=== PATIENT | female | born 1940 | race Hispanic/Latino ===

== ENCOUNTER 2016-04-20 19:40 | Emergency (ER) | payer MEDICARE ==
[2016-04-20 20:47] LABS: ALT (SGPT) 9 U/L (0-55); AST (SGOT) 22 U/L (5-34); Alkaline Phosphatase 39 U/L (40-150); Anion Gap 14 mmol/L (10-20); BUN (Urea Nitrogen) 29 mg/dL (9.8-20.1); Bilirubin, Total 0.4 mg/dL (0.2-1.2); Calc. Creatinine Clearance 0 mL/min (70-130); Calcium 11.7 mg/dL (7.8-10.44); Carbon Dioxide 21 mmol/L (23-31); Chloride 108 mmol/L (98-107); Estimated GFR-MDRD 20; Globulin 6.3 g/dL (2.4-3.5); Protein, Total 8.9 g/dL (5.8-8.1)
[2016-04-20 20:48] LABS: Troponin I 0.025 ng/mL (< 0.028)
[2016-04-20 20:53] LABS: #Lymphocytes 1.3 thou/uL (1.20-3.40); #Monocytes 0.5 thou/uL (0.11-0.59); #Neutrophils 4.9 thou/uL (1.40-6.50); %Basophils 0.4 % (0.0-1.0); %Eosinophils 0.6 % (0.0-10.0); %Lymphocytes 19.3 % (21.0-51.0); %Monocytes 7.3 % (0.0-10.0); Hematocrit 19.1 % (36.0-47.0); Mean Platelet Volume 6.6 fL (7.4-10.4); Red Blood Cell (RBC) Count 1.86 mill/uL (4.20-5.40); White Blood Cell (WBC) Count 6.7 thou/uL (4.8-10.8)
[2016-04-20] MEDS ORDERED: Dextrose 5 %-0.45 % NaCl 1,000 ML ONE (20:53)
[2016-04-20 20:54] LABS: Hypochromia SLIGHT = 6-15 cells (100X) (0-5/hpf); Macrocytosis SLIGHT = 6-15 cells (100X) (0-5/hpf); Ovalocytes SLIGHT = 2-5 cells (100X) (0-1/hpf)
[2016-04-20] MEDS ORDERED: Sodium Chloride 0.9% 250 ML 250 ML ONE (21:21)
[2016-04-20] MEDS ORDERED: cefTRIAXone\\ROCEPHIN 2 GM VIAL ONE (21:21)
[2016-04-20] MEDS ORDERED: Azithromycin 500 MG VIAL ONE (21:21)
[2016-04-20] MEDS ORDERED: Sodium Chloride 0.9% 100 ML ONE (21:21)
--- NOTE | 2016-04-20 22:19 | ERRECORD ---
[facility] EMERGENCY RECORD HPI DIABETES (20:50 BPIC) CHIEF COMPLAINT: Patient presents for evaluation of hypoglycemia. HISTORIAN: History provided by patient, Additional history obtained from EMS, pt found unresponsive at home and 911 was called. ems found that the patient's blood glucose was 16. EMS gave 1/2 amp pt D50 and she became more responsive. pt does not recall what happened, but states that she has only eaten one taco this morning. she also has chronic renal disease and takes glipizide for her diabetes. ROS (20:55 BPIC) CONSTITUTIONAL: Negative constitutional review of systems, Historian denies chills, Historian denies fever. states she feels much better now. EYES: Negative eye review of systems. ENT: Negative ears, nose, throat review of systems. CARDIOVASCULAR: Negative cardiovascular review of systems, Historian denies chest pain, denies palpitations. RESPIRATORY: Negative respiratory review of systems, Historian denies cough, denies shortness of breath. GI: Negative gastrointestinal review of systems, Historian denies abdominal pain, denies constipation, denies diarrhea. MUSCULOSKELETAL: Historian reports back pain. SKIN: Negative skin review of systems. NEUROLOGIC: Negative neurologic review of systems. ENDOCRINE: Negative endocrine review of systems. HEMO/LYMPHATIC: Normal hematologic/lymphatic system review. PSYCHIATRIC: Negative psychiatric review of systems. NOTES: All other ROS is negative except as listed in HPI. 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 (19:50 KASA) FEMALE SURGICAL HISTORY: Surgical history of hysterectomy. (19:50 KASA) PSYCHIATRIC HISTORY: no history of suicidal ideations, No history of suicide attempts, No history of hallucinations, No history of homicidal ideations. (19:50 KASA) SOCIAL HISTORY: Lives at home, with family, Patient denies alcohol use, Patient denies drug use, Patient has no smoking history. (19:50 KASA) NOTES: I have reviewed and agree with the PMH/PSxH/FamHx/SocHx obtained by the nurse. (20:55 BPIC) KNOWN ALLERGIES No Known Allergies &a-1R&a+25V*p+0X*[id number]*c202B*c15G*c2P*p-0X&a-25V&a+1R Name: Kylie Aguero : 1940 F76 MedRec: [id number] AcctNum: [id number] Prepared: Jennifer Apr 21, 2016 00:18 by Interface Page 1 of 4 pMD [facility] EMERGENCY RECORD CURRENT MEDICATIONS glipiZIDE: TABLET : Strength - 5 mg : ORAL Patient Dose: 1 tab(s) Oral 2 times a day (with meals). (19:51 KASA) meTOPROLOL succinate: TABLET, EXTENDED RELEASE 24 HR : Strength - 25 mg : ORAL Patient Dose: 1 tab(s) Oral once a day. (19:52 KASA) sodium bicarbonate: TABLET : Strength - 650 mg : ORAL Patient Dose: 1 tab(s) Oral 3 times a day. (19:56 KASA) oxyCODONE: CAPSULE : Strength - 5 mg : ORAL Patient Dose: 1 tab(s) Oral As Needed. (19:57 KASA) VITAL SIGNS VITAL SIGNS: Pulse: 60, Resp: 20, Pain: 0, O2 sat: 100 on Room Air, Time: 04/20/2016 19:45. (19:45 KASA) BP: 200/79, Pulse: 60, Resp: 18, Temp: 96.4 (Tympanic), Pain: 0, O2 sat: 100, Time: 04/20/2016 19:48. (19:48 KASA) BP: 195/57, Pulse: 63, Resp: 20, Temp: 97.5 (Temporal), Pain: 0, O2 sat: 100 on Room Air, Time: 04/20/2016 22:15. (22:15 EPIE) BP: 165/65, Pulse: 56, Resp: 20 (Non-Labored), O2 sat: 99 on Room Air, Time: 04/20/2016 23:00. (23:00 EPIE) BP: 138/63, Pulse: 54, Resp: 18 (Non-Labored), Pain: 0, O2 sat: 100 on Room Air, Time: 04/20/2016 23:30. (23:30 EPIE) BP: 168/60, Pulse: 61, Resp: 20, Temp: 98.0, Pain: 0, O2 sat: 97 on RA, Time: 04/21/2016 00:02. (MonApr 21, 2016 00:02 KASA) PHYSICAL EXAM (20:55 BPIC) CONSTITUTIONAL: Vital signs reviewed, Patient appears non toxic, Patient alert and oriented to person, place and time, Pt is in no apparent distress. HEAD: Head exam included findings of head atraumatic, normocephalic. EYES: Eye exam included findings of eyelids normal to inspection, Pupils equally round and reactive to light, Extraocular muscles intact. ENT: ENT exam normal, Nose exam normal, no nasal deformity, no bleeding from nares, Pharynx exam normal, Mouth exam normal, mucous membranes moist. NECK: Neck exam included findings of normal range of motion, Trachea midline. RESPIRATORY CHEST: Rales present, to bilateral lower lobes. CARDIOVASCULAR: Heart sounds with, systolic murmur present, grade 3/6, Cardiovascular assessment normal, Cardiovascular exam included findings of heart rate regular rate and rhythm,. &a-1R&a+25V*p+0X*y9228K*c202B*c15G*c2P*p-0X&a-25V&a+1R Name: Kylie Aguero : 1940 F76 MedRec: [id number] AcctNum: [id number] Prepared: MonApr 21, 2016 00:18 by Interface Page 2 of 4 pMD [facility] EMERGENCY RECORD ABDOMEN FEMALE: Abdominal exam included findings of abdomen nontender, Bowel sounds normal, no mass, no pulsatile masses, no peritoneal signs. BACK: Back exam included findings of normal inspection, range of motion normal, no costovertebral angle tenderness. UPPER EXTREMITY: Upper extremity exam included findings of inspection normal, Range of motion normal. LOWER EXTREMITY: Lower extremity exam included findings of inspection normal, Range of motion normal, Edema present, to bilateral lower extremities, pitting, +1. NEURO: Neuro exam findings include patient oriented to person, place and time, Speech normal, no focal motor deficits, no focal sensory deficits. SKIN: Skin exam included findings of skin warm, dry, and normal in color. LYMPHATIC: Lymphatic exam normal. PSYCHIATRIC: Psychiatric exam included findings of patient oriented to person place and time, Normal affect. EKG INTERPRETATION (20:46 BPIC) 12 LEAD EKG INTERPRETATION: 12 lead EKG interpreted by Emergency Department Physician at time of study, 12 lead EKG shows, sinus bradycardia, Rate (beats per minute): 56, with no ectopics, Conduction normal, ST segments normal, T waves normal, Clinical impression:, non-specific EKG. RADIOLOGYINTERPRETATION (20:46 BPIC) CHEST: Films of the chest show, to the left lower. MEDICATION ADMINISTRATION SUMMARY Drug Name: *Imodium, Dose Ordered: 2 mg, Route: Oral, Status: Given, Time: 23:53 04/20/2016, Drug Name: azithromycin intravenous, Dose Ordered: 500 mg, Route: IV Piggy Back, Status: Given, Time: 22:04 04/20/2016, Drug Name: cefTRIAXone injection, Dose Ordered: 2 g, Route: IV Piggy Back, Status: Given, Time: 21:29 04/20/2016, Drug Name: *D5 %-0.45 % sodium chloride, Dose Ordered: 1 L, Route: IV Fluid Infusion, Status: Given, Time: 21:19 04/20/2016, Drug Name: aspirin oral, Dose Ordered: 324 mg, Route: Oral, Status: Given, Time: 20:14 04/20/2016, *Additional information available in notes, Detailed record available in Medication Service section. DOCTOR NOTES RE-EVALUATION: While in the ED and eating food, the patient's blood glucose has dropped back to 46. asymptomatic currently. D5 drip and eating encouraged. (21:50 BPIC) CRITICAL CARE: Time spent providing critical care to patient was 30-74 minutes, 35 minutes, pt with recurrent hypoglycemia &a-1R&a+25V*p+0X*u9566T*c202B*c15G*c2P*p-0X&a-25V&a+1R Name: Kylie Aguero : 1940 F76 MedRec: [id number] AcctNum: [id number] Prepared: MonApr 21, 2016 00:18 by Interface Page 3 of 4 pMD [facility] EMERGENCY RECORD needing iv drip of D5. dw family and with transfer facility for acceptance. pt also may have pneumonia and has multiple chronic lab abnormalities. (22:09 BPIC) D/W: Discussed this case with HOLLY Hay communication skills instructor at [facility] accepting for transfer. (22:08 BPIC) PROBLEM LIST No recorded problems DIAGNOSIS (22:07 BPIC) FINAL: PRIMARY: hypoglycemia, ADDITIONAL: chronic anemia, chronic kidney disease, possible pneumonia. PRESCRIPTION No recorded prescriptions DISPOSITION PATIENT: Disposition Type: Transfer, Disposition: Transfer to [facility], Condition: Guarded. (22:07 BPIC) Patient left the department. (MonApr 21, 2016 00:15 JALIL) Renteria: VENKAT=MD Samantha, Parveen TOPETE=MARCIAL Owens, Lora JIMENES=MARCIAL Weller, Vania &a-1R&a+25V*p+0X*m2921K*c202B*c15G*c2P*p-0X&a-25V&a+1R Name: Kylie Aguero : 1940 F76 MedRec: [id number] AcctNum: [id number] Prepared: MonApr 21, 2016 00:18 by Interface Page 4 of 4 pMD MTDD
--- NOTE | 2016-04-20 22:25 | PICIS ---
[facility] EMERGENCY RECORD TRIAGE (MonApr 20, 2016 19:47 KASA) TRIAGE NOTES: Hypoglycemic with a glucose of 16 by EMS. Up to 90 after .5 of D50. 73 at 1947. (MonApr 20, 2016 19:47 KASA) PATIENT: NAME: Kylie Aguero, AGE: 76, GENDER: female, : Mon1940, TIME OF GREET: MonApr 20, 2016 19:41, PREFERRED LANGUAGE: Cook Islander, ETHNICITY: or , ECODE BILLING MAP: [facility] ER, SSN: [id number], Zip Code: [address], KG WEIGHT: 69.85, PHONE: , , , PERSON ID: [id number], PCP: MD Childress Frederick. (MonApr 20, 2016 19:47 KASA) COMPLAINT: ROOM 4. (MonApr 20, 2016 19:47 KASA) ADMISSION: URGENCY: 3 Urgent, ADMISSION SOURCE: Home, AMBULANCE: [facility], TRANSPORT: AMBULANCE - [facility], BED: ER -04. (MonApr 20, 2016 19:47 KASA) SIRS SCORING: Heart Rate 55-109 (0), Temp range 93.1-96.7 (1), respiratory rate 12-24 (0), Latest WBC 3-14.9 (0), Mental Status altered: no (0), Total SIRS Score 1. (19:50 KASA) TRIAGE SCREENING: Patient denies suicidal ideation, Patient denies presence of domestic violence. (19:50 KASA) PROVIDERS: TRIAGE NURSE: Vania Weller RN. (MonApr 20, 2016 19:47 KASA) VITAL SIGNS: Pulse 60, Resp 20, Pain 0, O2 Sat 100, on Room Air, Time 04/20/2016 19:45. (19:45 KASA) BP 200/79, Pulse 60, Resp 18, Temp 96.4, (Tympanic), Pain 0, O2 Sat 100, Time 04/20/2016 19:48. (19:48 KASA) KNOWN ALLERGIES No Known Allergies CURRENT MEDICATIONS glipiZIDE: TABLET : Strength - 5 mg : ORAL Patient Dose: 1 tab(s) Oral 2 times a day (with meals). (19:51 KASA) meTOPROLOL succinate: TABLET, EXTENDED RELEASE 24 HR : Strength - 25 mg : ORAL Patient Dose: 1 tab(s) Oral once a day. (19:52 KASA) sodium bicarbonate: TABLET : Strength - 650 mg : ORAL Patient Dose: 1 tab(s) Oral 3 times a day. (19:56 KASA) oxyCODONE: CAPSULE : Strength - 5 mg : ORAL Patient Dose: 1 tab(s) Oral As Needed. (19:57 KASA) VITAL SIGNS VITAL SIGNS: Pulse: 60, Resp: 20, Pain: 0, O2 sat: 100 on Room Air, Time: 04/20/2016 19:45. (19:45 KASA) BP: 200/79, Pulse: 60, Resp: 18, Temp: 96.4 (Tympanic), Pain: 0, O2 sat: 100, Time: 04/20/2016 19:48. (19:48 KASA) BP: 195/57, Pulse: 63, Resp: 20, Temp: 97.5 (Temporal), Pain: 0, O2 sat: &a-1R&a+25V*p+0X*r5457D*c202B*c15G*c2P*p-0X&a-25V&a+1R Name: Kylie Aguero : 1940 F76 MedRec: [id number] AcctNum: [id number] Prepared: [facility] Apr 21, 2016 00:24 by Interface Page 1 of 13 pMD [facility] EMERGENCY RECORD 100 on Room Air, Time: 04/20/2016 22:15. (22:15 EPIE) BP: 165/65, Pulse: 56, Resp: 20 (Non-Labored), O2 sat: 99 on Room Air, Time: 04/20/2016 23:00. (23:00 EPIE) BP: 138/63, Pulse: 54, Resp: 18 (Non-Labored), Pain: 0, O2 sat: 100 on Room Air, Time: 04/20/2016 23:30. (23:30 EPIE) BP: 168/60, Pulse: 61, Resp: 20, Temp: 98.0, Pain: 0, O2 sat: 97 on RA, Time: 04/21/2016 00:02. (Jennifer Apr 21, 2016 00:02 KASA) NURSING ASSESSMENT: ELDERLY WITH PROCEDURES (20:00 KASA) CONSTITUTIONAL: Patient complains of Hypoglycemia, hypertensive. RESPIRATORY: Respiratory assessment findings include respiratory effort easy, Respirations regular, Conversing normally, Neck and chest exam findings include trachea midline, Chest expansion equal, Chest movement symmetrical, no signs of distress, no associated cough noted, no associated fever. ABDOMEN: Abdomen assessment findings include abdomen symmetrical, Abdomen soft, non-tender, Bowel sound normal, no associated nausea, no associated vomiting, no associated diarrhea, no associated constipation, Associated with appetite change, decrease, Notes: EMS states family reported decreased appetite over the past 3 weeks. FALL RISK: Fall risk assessment findings include: no history of falls (0), Use of level of consciousness altering agents with mentation or cognitive changes (3), Change in blood pressure (1), Impaired mobility (3), Elimination problems (3), Total score 10, Fall risk. TRISTAN SCALE: (3) Sensory perception slightly limited, (3) Skin is occasionally moist, (3) Patient walks occasionally, (3) Slightly limited mobility, (2) Nutrition is probably inadequate, (2) Patient has potential problem moving, Tristan Risk Total: 16. SAFETY: Side rails up, Cart/Stretcher in lowest position, Family at bedside, Call light within reach, Hospital ID band on. NURSING ASSESSMENT: FALL RISK (22:55 KASA) FALL RISK: Use of level of consciousness altering agents with mentation or cognitive changes (3), Change in blood pressure (1), Impaired mobility (3), Elimination problems (3), Total score 10, Fall risk. NURSING ASSESSMENT: SKIN (21:58 KASA) SKIN: Skin assessment findings include skin warm, Skin dry, Skin normal in color, Inspection findings include: No pressure ulcer to the shoulder, Inspection findings include no pressure ulcer to the elbow, Inspection findings include no pressure ulcers to the hip, Inspection findings include no pressure ulcer to the sacrum, Inspection findings include no pressure ulcer to the heel, Inspection findings include no pressure ulcer, Inspection findings include no pressure ulcer. SAFETY: Side rails up, Cart/Stretcher in lowest position, Family &a-1R&a+25V*p+0X*w3682Y*c202B*c15G*c2P*p-0X&a-25V&a+1R Name: Kylie Aguero : 1940 F76 MedRec: [id number] AcctNum: [id number] Prepared: Jennifer Apr 21, 2016 00:24 by Interface Page 2 of 13 pMD [facility] EMERGENCY RECORD at bedside, Call light within reach, Hospital ID band on. NURSING PROCEDURE: BEDSIDE RADIOLOGY PATIENT IDENTIFIER: Patient actively involved in identification process, Patient's identity verified by patient stating name, Patient's identity verified by patient stating date. (20:24 KASA) Patient actively involved in identification process, Patient's identity verified by patient stating name, Patient's identity verified by patient stating date. (20:24 SBRA) BEDSIDE RADIOLOGY: Bedside radiology performed by Marti, Portable chest x-ray performed. (20:24 KASA) Bedside radiology performed by JAXON, Portable chest x-ray performed. (20:24 SBRA) SAFETY: Side rails up, Cart/Stretcher in lowest position, Family at bedside, Call light within reach, Hospital ID band on. (20:24 KASA) NURSING PROCEDURE: BEDSIDE TESTING PATIENT IDENTIFIER: Patient actively involved in identification process, Patient's identity verified by patient stating name, Patient's identity verified by patient stating date. (19:47 KASA) Patient actively involved in identification process, Patient's identity verified by patient stating name, Patient's identity verified by patient stating date. (23:50 KASA) GLUCOSE: Glucose testing indicated for diabetic patient, Glucose testing indicated for hypoglycemia, Capillary blood sample, Result (mg/dl) 73. (19:47 KASA) Glucose testing indicated for diabetic patient, Glucose testing indicated for hypoglycemia, Capillary blood sample, Result (mg/dl) 46. (20:46 KASA) Glucose testing indicated for diabetic patient, Glucose testing indicated for hypoglycemia, Capillary blood sample, Result (mg/dl) 86. (21:34 KASA) Glucose testing indicated for diabetic patient, Glucose testing indicated for hypoglycemia, Capillary blood sample, Result (mg/dl) 118. (22:50 KASA) Glucose testing indicated for diabetic patient, Glucose testing indicated for hypoglycemia, Capillary blood sample, Result (mg/dl) 86. (23:50 KASA) FOLLOW-UP: After procedure, results given to Dr. Singh. (20:46 KASA) After procedure, results given to Dr. Singh. (21:34 KASA) After procedure, results given to Dr. Singh. (22:50 KASA) SAFETY: Side rails up, Cart/Stretcher in lowest position, Family at bedside, Call light within reach, Hospital ID band on. (19:47 KASA) Side rails up, Cart/Stretcher in lowest position, Family at bedside, Call light within reach, Hospital ID band on. (20:46 KASA) &a-1R&a+25V*p+0X*r8227M*c202B*c15G*c2P*p-0X&a-25V&a+1R Name: Kylie Aguero : 1940 F76 MedRec: [id number] AcctNum: [id number] Prepared: MonApr 21, 2016 00:24 by Interface Page 3 of 13 D [facility] EMERGENCY RECORD Side rails up, Cart/Stretcher in lowest position, Family at bedside, Call light within reach, Hospital ID band on. (21:34 KASA) Side rails up, Cart/Stretcher in lowest position, Family at bedside, Call light within reach, Hospital ID band on. (22:50 KASA) NURSING PROCEDURE: NEIGHBORHOOD SERVICE CENTER DIRECTOR (20:00 EPIE) NEIGHBORHOOD SERVICE CENTER DIRECTOR: Patient placed on court monitor, Patient placed on non-invasive blood pressure monitor, with disposable blood pressure cuff applied, Patient placed on continuous pulse oximetry, Adult/pediatric oxisensor applied. FOLLOW-UP: After procedure, alarms set and on, After procedure, patient tolerating monitoring. NURSING PROCEDURE: EKG CHART (20:19 EPIE) EK lead EKG performed on the left chest, done by Lora CEJA, first EKG. FOLLOW-UP: After procedure, EKG for interpretation given to Dr. Samantha SHRESTHA. NURSING PROCEDURE: IV (20:36 EPIE) IV SITE 1: IV established, to the right antecubital, using an 18 gauge catheter, Saline lock established, Notes: IV started by EMS CONSTRUCTION EQUIPMENT OVERHAULER JLoop not connected to IV. J Loop placed in ED by Lora CEJA. FOLLOW-UP SITE 1: After procedure, no drainage at IV site, After procedure, no swelling at IV site, After procedure, no redness at IV site. NURSING PROCEDURE: LAB DRAW PATIENT IDENTIFIER: Patient actively involved in identification process, Patient's identity verified by patient stating name, Patient's identity verified by patient stating date. (20:18 KASA) Patient actively involved in identification process, Patient's identity verified by patient stating name, Patient's identity verified by patient stating date. (21:15 KASA) LAB DRAW: Lab draw indicated for obtaining specimens for evaluation, Initial lab draw performed, from vascular access device, existing IV site, R AC, After labs drawn, device flushed with saline, amount (mL) 10, Lab specimens labeled in the presence of the patient and sent to lab. (20:18 KASA) Lab draw indicated for obtaining specimens for evaluation, Subsequent lab draw performed, by venipuncture, from left hand, in one attempt, Lab specimens labeled in the presence of the patient and sent to lab, Blood cultures labeled in the presence of the patient and sent to lab, Notes: Blood cultures also drawn from existing IV site. (21:15 KASA) FOLLOW-UP: After procedure, dressing applied to site, After procedure, no swelling at site, After procedure, no active bleeding from site. (21:15 KASA) &a-1R&a+25V*p+0X*w7146Z*c202B*c15G*c2P*p-0X&a-25V&a+1R Name: Kylie Aguero : 1940 F76 MedRec: [id number] AcctNum: [id number] Prepared: MonApr 21, 2016 00:24 by Interface Page 4 of 13 D [facility] EMERGENCY RECORD SAFETY: Side rails up, Cart/Stretcher in lowest position, Family at bedside, Call light within reach, Hospital ID band on. (20:18 KASA) Side rails up, Cart/Stretcher in lowest position, Family at bedside, Call light within reach, Hospital ID band on. (21:15 KASA) NURSING PROCEDURE: NURSE NOTES NURSES NOTES: Patient examined by physician. (19:58 KASA) Notes: Patient resting with family at bedside. RR even and unlabored. No new complaints at this time. Pt given box lunch at this time per ERMD. (20:20 EPIE) Notes: [phone] Armando -will travel to [place]. Leaving at this time to go pharmacy picking tech car. Asked to be called if patient transfers before he returns. (22:07 KASA) Patient assisted to bathroom with unsteady gait, Patient in no apparent distress, Notes: Assisted the bathroom with family. IV fluids and antibiotics continue to run. (22:33 KASA) Patient in no apparent distress, Notes: 8 oz of apple juice provided due to hypoglycemia. ERMD informed. Orders for fluids to be ordered. (20:55 KASA) Patient assisted to bathroom with unsteady gait, Patient in no apparent distress, Notes: Assisted by family and nurse. Back in bed at this time awaiting transfer. (MonApr 21, 2016 00:02 KASA) VITAL SIGNS: BP: 168, / 60, Pulse: 61, Resp: 20, Temp: 98.0, Pain: 0, O2 sat: 97, on: RA. (MonApr 21, 2016 00:02 KASA) NURSING PROCEDURE: TRANSFER (MonApr 21, 2016 00:10 KASA) TRANSFER: Reason for transfer need for specialized care, Diagnosis: Hypoglycemia, Possible Pneumonia, Chronic Kidney Disease, Accepting institution: [facility], Accepting physician: Petty, Referring physician: Samantha, Transported by non-urgent ambulance, accompanied by emergency medical services personnel, Report called to receiving facility, MARCIAL Christianson, Provided opportunity to answer questions, Bed assigned ER to ER, Summary of Care printed, Copy of patient record prepared for receiving facility, Status of patient's valuables documented on chart, Medication reconciliation form prepared and sent to receiving facility, Patient consent for transfer signed, Family member contacted, Family at bedside. BELONGINGS: Belongings and valuables with patient upon arrival to the Emergency Department include:, Belongings and valuables with patient at time of discharge include:, bra, pants, shirt, shoes, Description 1 black shoe, socks, underwear, medications, purse, Belongings sent home with family member, Valuables sent home with family, Notes: Jewelry remains with patient. SAFETY: Side rails up, Cart/Stretcher in lowest position, Family at bedside, Call light within reach, Hospital ID band on. ORDER DETAILS &a-1R&a+25V*p+0X*e3441G*c202B*c15G*c2P*p-0X&a-25V&a+1R Name: Kylie Aguero : 1940 F76 MedRec: [id number] AcctNum: [id number] Prepared: Jennifer Apr 21, 2016 00:24 by Interface Page 5 of 13 D [facility] EMERGENCY RECORD Order Name: BLOOD GLUCOSE MONITOR, Status: Done, Time: 21:43 04/20/2016, User: KASA, - Ordered for: MD Singh Bryan, - Entered by: MD Singh Bryan - [facility] Apr 20, 2016 20:09, - Quantity: 1, Order Name: Cardiac Profile w/CKMB & Troponin - I, Status: Active, Time: 20:09 04/20/2016, User: BPIC, - Ordered for: MD Singh Bryan, - Entered by: MD Singh Bryan - [facility] Apr 20, 2016 20:09, - Quantity: 1, Order Name: CBC with Differential, Status: Active, Time: 20:09 04/20/2016, User: BPIC, - Ordered for: MD Singh Bryan, - Entered by: MD Singh Bryan - [facility] Apr 20, 2016 20:09, - Quantity: 1, Order Name: Comprehensive Metabolic Panel, Status: Active, Time: 20:09 04/20/2016, User: BPIC, - Ordered for: MD Singh Bryan, - Entered by: MD Singh Bryan - [facility] Apr 20, 2016 20:09, - Quantity: 1, Order Name: Culture, Blood, Status: Active, Time: 20:47 04/20/2016, User: BPIC, - Ordered for: MD Singh Bryan, - Entered by: MD Singh Bryan - [facility] Apr 20, 2016 20:47, - Quantity: 1, Order Name: EKG 12 Lead in Emergency Room, Status: Active, Time: 20:09 04/20/2016, User: BPIC, - Ordered for: MD Singh Bryan, - Entered by: MD Singh Bryan - MonApr 20, 2016 20:09, - Quantity: 1, Order Name: XR Chest 1 View Portable, Status: Active, Time: 20:09 04/20/2016, User: [facility], - Ordered for: MD Singh Bryan, - Entered by: MD Singh Bryan - MonApr 20, 2016 20:09, - Quantity: 1. MEDICATION ADMINISTRATION SUMMARY Drug Name: *Imodium, Dose Ordered: 2 mg, Route: Oral, Status: Given, Time: 23:53 04/20/2016, Drug Name: azithromycin intravenous, Dose Ordered: 500 mg, Route: IV Piggy Back, Status: Given, Time: 22:04 04/20/2016, Drug Name: cefTRIAXone injection, Dose Ordered: 2 g, Route: IV Piggy Back, Status: Given, Time: 21:29 04/20/2016, Drug Name: *D5 %-0.45 % sodium chloride, Dose Ordered: 1 L, Route: IV Fluid Infusion, Status: Given, Time: 21:19 04/20/2016, Drug Name: aspirin oral, Dose Ordered: 324 mg, Route: Oral, Status: Given, Time: 20:14 04/20/2016, *Additional information available in notes, Detailed record available in Medication Service section. &a-1R&a+25V*p+0X*b9363T*c202B*c15G*c2P*p-0X&a-25V&a+1R Name: Kylie Aguero : 1940 F76 MedRec: [id number] AcctNum: [id number] Prepared: MonApr 21, 2016 00:24 by Interface Page 6 of 13 pMD [facility] EMERGENCY RECORD MEDICATION SERVICE aspirin oral: Order: aspirin oral (aspirin) - Dose: 324 mg : Oral Ordered by: Parveen Singh MD Entered by: Parveen Singh MD MonApr 20, 2016 20:10 , Acknowledged by: Vania Weller RN MonApr 20, 2016 20:12 Documented as given by: Vania Weller RN MonApr 20, 2016 20:14 Patient, Medication, Dose, Route and Time verified prior to administration. Amount given: 324 mg, Site: Medication administered P.O., Correct patient, time, route, dose and medication confirmed prior to administration, Patient advised of actions and side-effects prior to administration, Allergies confirmed and medications reviewed prior to administration, Patient in position of comfort, Side rails up, Cart in lowest position, Family at bedside. azithromycin intravenous: Order: azithromycin intravenous (azithromycin) - Dose: 500 mg : IV Piggy Back Ordered by: Parveen Singh MD Entered by: Parveen Singh MD MonApr 20, 2016 20:49 , Acknowledged by: Vania Weller RN MonApr 20, 2016 21:26 Documented as given by: Vania Weller RN MonApr 20, 2016 22:04 Patient, Medication, Dose, Route and Time verified prior to administration. Amount given: 500 mg, IV SITE #1 IVPB or drip, subsequent infusion, IVPB mixed in: 250ml, Fluid: 0.9NS, via primary tubing, via pump tubing, at 250 ml/hr, Catheter placement confirmed via flush prior to administration, IV site without signs or symptoms of infiltration during medication administration, No swelling during administration, No drainage during administration, IV flushed after administration, Correct patient, time, route, dose and medication confirmed prior to administration, Patient advised of actions and side-effects prior to administration, Allergies confirmed and medications reviewed prior to administration, Patient in position of comfort, Side rails up, Cart in lowest position, Family at bedside. : Follow Up : No signs or symptoms of allergic reaction noted, _IV SITE #1:_, Medication infusion discontinued, on MonApr 20, 2016 23:05, Total infusion time IV site 1 1 hour, 5 minutes, ., Total amount infused: 500 MG/ 250 ML, IV Line flushed after administration, Advised not to ambulate without assistance, Patient in position of comfort, Side rails up, Cart in lowest position, Family at bedside. (23:10 KASA) cefTRIAXone injection: Order: cefTRIAXone injection (ceftriaxone sodium) - Dose: 2 g : IV Piggy Back Ordered by: Parveen Singh MD Entered by: Parveen Singh MD MonApr 20, 2016 20:49 , Acknowledged by: Vania Weller RN MonApr 20, 2016 21:26 Documented as given by: Vania Weller RN MonApr 20, 2016 21:29 Patient, Medication, Dose, Route and Time verified prior to administration. Amount given: 2 g, IV SITE #1 IVPB or drip, initial infusion, IVPB &a-1R&a+25V*p+0X*k8729X*c202B*c15G*c2P*p-0X&a-25V&a+1R Name: Kylie Aguero : 1940 F76 MedRec: [id number] AcctNum: [id number] Prepared: Jennifer Apr 21, 2016 00:24 by Interface Page 7 of 13 pMD [facility] EMERGENCY RECORD mixed in: 100ml, Fluid: 0.9NS, via primary tubing, via pump tubing, at 200 ml/hr, Catheter placement confirmed via flush prior to administration, IV site without signs or symptoms of infiltration during medication administration, No swelling during administration, No drainage during administration, IV flushed after administration, Correct patient, time, route, dose and medication confirmed prior to administration, Patient advised of actions and side-effects prior to administration, Allergies confirmed and medications reviewed prior to administration, Patient in position of comfort, Side rails up, Cart in lowest position, Family at bedside. : Follow Up : No signs or symptoms of allergic reaction noted, _IV SITE #1:_, Medication infusion discontinued, on MonApr 20, 2016 22:00, 35 minutes, ., Total amount infused: 2g/ 100 ml, IV Line flushed after administration, Advised not to ambulate without assistance, Patient in position of comfort, Side rails up, Cart in lowest position, Family at bedside. (22:00 KASA) D5 %-0.45 % sodium chloride: Order: D5 %-0.45 % sodium chloride (dextrose 5% and 0.45% NaCl) - Dose: 1 L : IV Fluid Infusion Schedule: Now Notes: 100/hr Ordered by: Parveen Singh MD Entered by: Parveen Singh MD MonApr 20, 2016 21:01 , Acknowledged by: Vania Weller RN MonApr 20, 2016 21:19 Documented as given by: Vania Weller RN MonApr 20, 2016 21:19 Patient, Medication, Dose, Route and Time verified prior to administration. Amount given: 1000 ml, IV SITE #1 IV fluids established for hydration, IV SITE #1 into right antecubital, IV SITE #1 1st bag hung, amount 1 Liter hung, IV SITE #1 Rate of infusion (non-bolus) Infusing at 100 ml/hr, via primary tubing, via pump tubing, IV SITE #1 on IV pump, Catheter placement confirmed via flush prior to administration, IV site without signs or symptoms of infiltration during medication administration, No swelling during administration, No drainage during administration, IV flushed after administration, Correct patient, time, route, dose and medication confirmed prior to administration, Patient advised of actions and side-effects prior to administration, Allergies confirmed and medications reviewed prior to administration, Patient in position of comfort, Side rails up, Cart in lowest position, Family at bedside. : Follow Up : No signs or symptoms of allergic reaction noted, _IV SITE #1:_, IV fluid infusion continued upon transfer from emergency department, on MonApr 21, 2016 00:15, Total fluid hydration time IV site 1 2 hours, ., Total amount infused: 280 ml, Advised not to ambulate without assistance, Patient in position of comfort, Side rails up, Cart in lowest position, Family at bedside. (MonApr 21, 2016 00:15 KASA) Imodium: Order: Imodium (loperamide HCl) - Dose: 2 mg : Oral Schedule: Now &a-1R&a+25V*p+0X*v5099K*c202B*c15G*c2P*p-0X&a-25V&a+1R Name: Kylie Aguero : 1940 F76 MedRec: [id number] AcctNum: [id number] Prepared: MonApr 21, 2016 00:24 by Interface Page 8 of 13 pMD [facility] EMERGENCY RECORD Notes: Read back and verified, Verbal Order Ordered by: Parveen Singh MD Entered by: Lora Owens RN MonApr 20, 2016 23:51 , Acknowledged by: Vania Weller RN MonApr 20, 2016 23:53 Documented as given by: Vania Weller RN MonApr 20, 2016 23:53 Patient, Medication, Dose, Route and Time verified prior to administration. Amount given: 2 MG, Site: Medication administered P.O., Correct patient, time, route, dose and medication confirmed prior to administration, Patient advised of actions and side-effects prior to administration, Allergies confirmed and medications reviewed prior to administration, Patient in position of comfort, Side rails up, Cart in lowest position, Family at bedside. HPI DIABETES (20:50 BPIC) CHIEF COMPLAINT: Patient presents for evaluation of hypoglycemia. HISTORIAN: History provided by patient, Additional history obtained from EMS, pt found unresponsive at home and 911 was called. ems found that the patient's blood glucose was 16. EMS gave 1/2 amp pt D50 and she became more responsive. pt does not recall what happened, but states that she has only eaten one taco this morning. she also has chronic renal disease and takes glipizide for her diabetes. ROS (20:55 BPIC) CONSTITUTIONAL: Negative constitutional review of systems, Historian denies chills, Historian denies fever. states she feels much better now. EYES: Negative eye review of systems. ENT: Negative ears, nose, throat review of systems. CARDIOVASCULAR: Negative cardiovascular review of systems, Historian denies chest pain, denies palpitations. RESPIRATORY: Negative respiratory review of systems, Historian denies cough, denies shortness of breath. GI: Negative gastrointestinal review of systems, Historian denies abdominal pain, denies constipation, denies diarrhea. MUSCULOSKELETAL: Historian reports back pain. SKIN: Negative skin review of systems. NEUROLOGIC: Negative neurologic review of systems. ENDOCRINE: Negative endocrine review of systems. HEMO/LYMPHATIC: Normal hematologic/lymphatic system review. PSYCHIATRIC: Negative psychiatric review of systems. NOTES: All other ROS is negative except as listed in HPI. PAST MEDICAL HISTORY MEDICAL HISTORY: Past medical history includes renal disease, history of diabetes, Past medical history includes history of hypertension, Past medical history includes history of malignancy, primary site skin, treated with chemotherapy (Dec/Jan &a-1R&a+25V*p+0X*z2416K*c202B*c15G*c2P*p-0X&a-25V&a+1R Name: Kylie Aguero : 1940 F76 MedRec: [id number] AcctNum: [id number] Prepared: Jennifer Apr 21, 2016 00:24 by Interface Page 9 of 13 pMD [facility] EMERGENCY RECORD 2016). (19:50 KASA) FEMALE SURGICAL HISTORY: Surgical history of hysterectomy. (19:50 KASA) PSYCHIATRIC HISTORY: no history of suicidal ideations, No history of suicide attempts, No history of hallucinations, No history of homicidal ideations. (19:50 KASA) SOCIAL HISTORY: Lives at home, with family, Patient denies alcohol use, Patient denies drug use, Patient has no smoking history. (19:50 KASA) NOTES: I have reviewed and agree with the PMH/PSxH/FamHx/SocHx obtained by the nurse. (20:55 BPIC) PHYSICAL EXAM (20:55 BPIC) CONSTITUTIONAL: Vital signs reviewed, Patient appears non toxic, Patient alert and oriented to person, place and time, Pt is in no apparent distress. HEAD: Head exam included findings of head atraumatic, normocephalic. EYES: Eye exam included findings of eyelids normal to inspection, Pupils equally round and reactive to light, Extraocular muscles intact. ENT: ENT exam normal, Nose exam normal, no nasal deformity, no bleeding from nares, Pharynx exam normal, Mouth exam normal, mucous membranes moist. NECK: Neck exam included findings of normal range of motion, Trachea midline. RESPIRATORY CHEST: Rales present, to bilateral lower lobes. CARDIOVASCULAR: Heart sounds with, systolic murmur present, grade 3/6, Cardiovascular assessment normal, Cardiovascular exam included findings of heart rate regular rate and rhythm,. ABDOMEN FEMALE: Abdominal exam included findings of abdomen nontender, Bowel sounds normal, no mass, no pulsatile masses, no peritoneal signs. BACK: Back exam included findings of normal inspection, range of motion normal, no costovertebral angle tenderness. UPPER EXTREMITY: Upper extremity exam included findings of inspection normal, Range of motion normal. LOWER EXTREMITY: Lower extremity exam included findings of inspection normal, Range of motion normal, Edema present, to bilateral lower extremities, pitting, +1. NEURO: Neuro exam findings include patient oriented to person, place and time, Speech normal, no focal motor deficits, no focal sensory deficits. SKIN: Skin exam included findings of skin warm, dry, and normal in color. LYMPHATIC: Lymphatic exam normal. PSYCHIATRIC: Psychiatric exam included findings of patient &a-1R&a+25V*p+0X*n0754M*c202B*c15G*c2P*p-0X&a-25V&a+1R Name: Kylie Aguero : 1940 F76 MedRec: [id number] AcctNum: [id number] Prepared: MonApr 21, 2016 00:24 by Interface Page 10 of 13 pMD [facility] EMERGENCY RECORD oriented to person place and time, Normal affect. EVENTS TRANSFER: Triage to Emergency Emergency Room -04. (19:47 KASA) Removed from Emergency Emergency Room -04. (MonApr 21, 2016 00:15 KASA) RADIOLOGYINTERPRETATION (20:46 BPIC) CHEST: Films of the chest show, to the left lower. EKG INTERPRETATION (20:46 BPIC) 12 LEAD EKG INTERPRETATION: 12 lead EKG interpreted by Emergency Department Physician at time of study, 12 lead EKG shows, sinus bradycardia, Rate (beats per minute): 56, with no ectopics, Conduction normal, ST segments normal, T waves normal, Clinical impression:, non-specific EKG. DOCTOR NOTES RE-EVALUATION: While in the ED and eating food, the patient's blood glucose has dropped back to 46. asymptomatic currently. D5 drip and eating encouraged. (21:50 BPIC) CRITICAL CARE: Time spent providing critical care to patient was 30-74 minutes, 35 minutes, pt with recurrent hypoglycemia needing iv drip of D5. dw family and with transfer facility for acceptance. pt also may have pneumonia and has multiple chronic lab abnormalities. (22:09 BPIC) D/W: Discussed this case with HOLLY Hay client consultant at [facility] accepting for transfer. (22:08 BPIC) PROBLEM LIST No recorded problems DIAGNOSIS (22:07 BPIC) FINAL: PRIMARY: hypoglycemia, ADDITIONAL: chronic anemia, chronic kidney disease, possible pneumonia. DISPOSITION PATIENT: Disposition Type: Transfer, Disposition: Transfer to [facility], Condition: Guarded. (22:07 BPIC) Patient left the department. (MonApr 21, 2016 00:15 KASA) PRESCRIPTION No recorded prescriptions IMAGING *EKG: Image captured from scanner. (21:53 KASA) *MEMORANDUM OF TRANSFER: Image captured from scanner. (22:18 LEEW) TRANSFER CONSENT: Image captured from scanner. (22:18 LEE) *SUPPLY CHARGE SHEET: Image captured from scanner. (MonApr 21, 2016 00:19 KASA) &a-1R&a+25V*p+0X*s4052R*c202B*c15G*c2P*p-0X&a-25V&a+1R Name: Kylie Aguero : 1940 F76 MedRec: [id number] AcctNum: [id number] Prepared: MonApr 21, 2016 00:24 by Interface Page 11 of 13 pMD [facility] EMERGENCY RECORD *EKG: Page 2 added. Image captured from scanner. (MonApr 21, 2016 00:22 KASA) ADMIN (22:10 BPIC) DIGITAL SIGNATURE: MD Singh Bryan. RESULTS LABORATORY: CBC with Differential Collection DT: MonApr 20, 2016 20:23, White Blood Cell (WBC) Count 6.7 thou/uL, Range (4.8-10.8), *Red Blood Cell (RBC) Count 1.86 - L mill/uL, Range (4.20-5.40), *Hemoglobin 6.4 - L g/dL, Range (12.0-16.0), *Hematocrit 19.1 - L %, Range (36.0-47.0), *Mean Corpuscular Volume 103.0 - H fl, Range (81.0-99.0), *Mean Corpuscular Hemoglobin 34.1 - H pg, Range (27.0-31.0), Mean Corpuscular HGB CONC 33.3 g/dL, Range (32.0-36.0), RBC Distribution Width 14.1 %, Range (11.5-14.5), *Platelet Count 98 - L thou/uL, Range (130-400), *Mean Platelet Volume 6.6 - L fL, Range (7.4-10.4), %Neutrophils 72.4 %, Range (42.0-75.0), *%Lymphocytes 19.3 - L %, Range (21.0-51.0), %Monocytes 7.3 %, Range (0.0-10.0), %Eosinophils 0.6 %, Range (0.0-10.0), %Basophils 0.4 %, Range (0.0-1.0), #Neutrophils 4.9 thou/uL, Range (1.40-6.50), #Lymphocytes 1.3 thou/uL, Range (1.20-3.40), #Monocytes 0.5 thou/uL, Range (0.11-0.59), #Eosinphils 0.0 thou/uL, Range (0.0-0.7), #Basophils 0.0 thou/uL, Range (0.0-0.2), Macrocytosis SLIGHT = 6-15 cells (100X), Range (0-5/hpf), Hypochromia SLIGHT = 6-15 cells (100X), Range (0-5/hpf), Ovalocytes SLIGHT = 2-5 cells (100X), Range (0-1/hpf), *PLT Morphology Comment Appears Decreased - , * L . (21:17 BP) Comprehensive Metabolic Panel Collection DT: MonApr 20, 2016 20:23, Critical Call Chemistry CALLED ERS.EMP , Refer to Critical Value designated by an *L or *H , Sodium 140 mmol/L, Range (136-145), *Potassium 3.2 - L mmol/L, Range (3.5-5.1), *Chloride 108 - H mmol/L, Range (98-107), *Carbon Dioxide 21 - L mmol/L, Range (23-31), Anion Gap 14 mmol/L, Range (10-20), *BUN (Urea Nitrogen) 29 - H mg/dL, Range (9.8-20.1), *Creatinine 2.36 - H mg/dL, Range (0.6-1.1), Estimated GFR-MDRD 20 , Reference Range for Estimated GFR: Greater than 90, mL/min/1.73 m2 NOTE: The MDRD equation has not been validated for use, with the &a-1R&a+25V*p+0X*a9297H*c202B*c15G*c2P*p-0X&a-25V&a+1R Name: Kylie Aguero : 1940 F76 MedRec: [id number] AcctNum: [id number] Prepared: MonApr 21, 2016 00:24 by Interface Page 12 of 13 pMD [facility] EMERGENCY RECORD elderly (over 70 years of age), women, patients with, serious comorbid condition or persons with extremes of body size, muscle, mass, or nutritional status. , *Glucose 43 - *L mg/dL, Range (83-110), Critical value!, *Calcium 11.7 - H mg/dL, Range (7.8-10.44), Bilirubin, Total 0.4 mg/dL, Range (0.2-1.2), *Protein, Total 8.9 - H g/dL, Range (5.8-8.1), NOTE: Plasma values are generally 0.3 to 0.5 g/dL higher than serum values, due to the presence of fibrinogen. , *Albumin 2.6 - L g/dL, Range (3.4-4.8), *Globulin 6.3 - H g/dL, Range (2.4-3.5), *Alb/Glob Ratio 0.4 - L g/dL, Range (1.2-2.2), *Alkaline Phosphatase 39 - L U/L, Range (40-150), AST (SGOT) 22 U/L, Range (5-34), ALT (SGPT) 9 U/L, Range (0-55). (21:17 BPIC) Cardiac Profile w/CKMB & TropI Collection DT: MonApr 20, 2016 20:23, CKMB 1.9 ng/mL, Range (0-6.6), Troponin I 0.025 ng/mL, Range (< 0.028), Reference Range , 0.00 - 0.028 ng/mL Negative 0.029 - 0.29 ng/mL , Indeterminate Greater or Equal to 0.3 ng/mL Strongly suggests [place] , . (21:17 BPIC) Accuchek Collection DT: MonApr 20, 2016 22:55, *Accuchek 118 - H mg/dL, Range (70-110). (23:23 BPIC) Accuchek Collection DT: MonApr 20, 2016 22:55, Accuchek 86 mg/dL, Range (70-110). (23:23 BPIC) Accuchek Collection DT: MonApr 20, 2016 22:55, *Accuchek 46 - *L mg/dL, Range (70-110). (23:23 BPIC) Accuchek Collection DT: MonApr 20, 2016 22:55, Accuchek 73 mg/dL, Range (70-110). (23:23 BPIC) Renteria: VENKAT=MD Samantha, Parveen TOPETE=MARCIAL Owens, Lora JIMENES=MARCIAL Weller, Vania LONG=MARCIAL Matthews, Benji SBRA=JENN Douglas Stacey &a-1R&a+25V*p+0X*y8385R*c202B*c15G*c2P*p-0X&a-25V&a+1R Name: Kylie Aguero : 1940 F76 MedRec: [id number] AcctNum: [id number] Prepared: [facility] Apr 21, 2016 00:24 by Interface Page 13 of 13 pMD MTDD
--- NOTE | 2016-04-20 23:07 | RAD ---
PORTABLE CHEST 04/20/16 PROVIDED CLINICAL HISTORY: Back pain. FINDINGS: Comparison 10/13/15. The cardiac and mediastinal silhouette is not definitely changed in appearance. The lungs are hypoin flated, limiting evaluation. Elevation of the left hemidiaphragm is redemonstrated. Parenchymal opac ity at the left lung base may reflect passive atelectasis or infiltrate. There is no evidence for pn eumothorax. Blunting of the left costophrenic angle could reflect pleural fluid. IMPRESSION: Left basilar parenchymal opacity as described above. POS: FABIAN
[2016-04-20] MEDS ORDERED: Loperamide HCl 2 MG CAP ONE (23:49)
== END 2016-04-21 00:10 | disposition short-term general hospital (02) ==
LOC: NAV ERS 19:40
DX: E11.649 Type 2 diabetes mellitus with hypoglycemia without coma (principal); I12.9 Hypertensive chronic kidney disease with stage 1 through stage 4 chronic kidney disease, or unspecified chronic kidney disease; N18.9 Chronic kidney disease, unspecified; D64.9 Anemia, unspecified; Z79.84 Long term (current) use of oral hypoglycemic drugs
CPT/HCPCS: 36416; 71010; 80053; 82553; 84484; 85025; 87040; 93005; 96361; 96365; 96367; J0456; J0696; J7042; J7050